=== PATIENT | female | born 2000 ===

== ENCOUNTER 2024-01-22 14:26 | Emergency (ER) | payer OTHER, SELFPAY ==
[2024-01-22 14:36] VITALS: BP 144/86
[2024-01-22 15:00] LABS: % Basophils 0.6 % (0-2); % Eosinophils 0.6 % (0-6); % Immature Granulocytes 0.3 % (0-0.5); % Lymphocytes 37.2 % (20.5-51.1); % Monocytes 6.2 % (1.7-9.3); % Neutrophils 55.1 % (42.2-75.2); Absolute Basophils 0.1 10^3/uL (0-0.2); Absolute Eosinophils 0.1 10^3/uL (0-0.7); Absolute Lymphocytes 3.8 10^3/uL (1.2-3.4); Absolute Monocytes 0.6 10^3/uL (0.1-0.6); Absolute Neutrophils 5.7 10^3/uL (1.4-6.5); Hematocrit 41.4 % (37.0-47.0); Hemoglobin 13.5 g/dL (12.0-16.0); Mean Corp Hgb Conc. 32.6 g/dL (33.0-37.0); Mean Corpuscular Hgb 28.1 pg (27.0-31.0); Mean Corpuscular Volume 86.1 fL (81.0-99.0); Mean Platelet Volume 8.8 fL (7.4-10.4); Nucleated Red Blood Cells % 0 %; Platelet Count 400 10^3/uL (130-400); Red Blood Cell Count 4.81 10^6/uL (4.20-5.40); Red Cell Dist. Width 12.5 % (11.5-14.5); White Blood Cell Count 10.3 10^3/uL (4.8-10.8)
[2024-01-22 15:16] LABS: ALT (SGPT) 14 U/L (0-35); AST (SGOT) 22 U/L (14-36); Albumin 4.9 g/dl (3.5-5.0); Alkaline Phosphatase 58 U/L (38-126); Blood Urea Nitrogen 12 mg/dl (7-17); Calcium 10.1 mg/dl (8.4-10.2); Carbon Dioxide 27 mmol/L (22-30); Chloride 102 mmol/L (98-107); Glucose 101 mg/dl (70-99); Potassium 4.2 mmol/L (3.5-5.1); Sodium 139 mmol/L (135-145); Total Bilirubin 0.5 mg/dl (0.2-1.3); Total Protein 8.2 g/dl (6.3-8.2); eGFR > 60.00
[2024-01-22 15:26] LABS: Troponin I < 0.012 ng/ml
--- NOTE | 2024-01-22 16:14 | ED.GENMED ---
History of Present Illness
<Kate Foote PA-C - Last Filed: 01/22/24 18:47>
General
Chief Complaint: Chest Pain
Source: patient
Exam Limitations: none
Time Seen by Provider: 01/22/24 16:11
Nursing documentation reviewed up to this point in time: agreed with
History of Present Illness
History of Present Illness:
This is a 23-year-old female with a no past medical history presenting emergency department today with concerns of chest pain. 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 Patient was at work today when she started to experience this pain
around 12:30 PM. Patient states that she fell to the middle of her chest. Patient nothing of it at the time but she talked to one of the nurses there and nurse was concerned and took her blood pressure and noticed it was in the 150s systolically.
Patient was given aspirin by the nurse and states that this not help with her pain or her symptoms. Patient also complains of palpitations that she has had for the past few days. Patient states that she will feel like occasionally her heart will
skip a beat. Patient denies a racing heart. Patient denies any lightheadedness or syncopal episodes. Patient denies any daily alcohol or tobacco use. Patient has a family history of cardiac disease. Patient states that at her last family visit,
her cholesterol was high but denies any medication needed for that, does take oral contraceptives
Review of Systems
<Kate Foote PA-C - Last Filed: 01/22/24 18:47>
Review of Systems
All Other Systems: ROS reviewed and negative except as documented in HPI and ROS
Phy Exam
<Kate Foote PA-C - Last Filed: 01/22/24 18:47>
Physical Exam
Physical Exam:
General: Patient is well appearing and in no acute distress; non-toxic
Skin: Warm and dry, no rashes or lesions
Head: Normocephalic, atraumatic
Eyes: Sclera non-icteric. EOMs intact. PERRLA.
Cardiac: Heart rate is irregular but I hear no murmurs
Peripheral Vascular: No lower extremity swelling or edema
Pulm: Normal respiratory effort, breath sounds equal bilaterally, no wheeze
Musculoskeletal: Chest pain not reproducible on exam. No palpable crepitus.
Neuro: CN II-XII intact, no focal neurologic deficits.
Psychiatric: Appropriate mood and affect.
Scores
<Kate Foote PA-C - Last Filed: 01/22/24 18:47>
Heart Score for Chest Pain Patients
STEMI patient?: No
History: Slightly or Non-Suspicious
ECG: Normal
Age: </= 45 years
Risk Factors: No Risk Factors
Troponin: </= Normal Limit
Heart Score for Chest Pain Patients: 0
Heart Score Risk: 2.5% MACE over next 6 weeks
Course
<Kate Foote PA-C - Last Filed: 01/22/24 18:47>
Orders/Labs/Results
Orders:
Orders
01/22/24 14:38
Electrocardiogram (*1) Urgent
Reason for Study: Chest Pain
EKG- Treatment ONCE
01/22/24 14:44
Complete Blood Count/With Diff Urgent
Comprehensive Metabolic Panel Urgent
Troponin I Urgent
01/22/24 16:51
Ketorolac [Toradol] 15 mg IV NOW STA
01/22/24 17:21
D-Dimer Urgent
Abnormal Lab Results
01/22/24
14:44
MCHC 32.6 L g/dL
(33.0-37.0)
Absolute Lymphs (auto) 3.8 H 10^3/uL
(1.2-3.4)
Glucose 101 H mg/dl
(70-99)
01/22/24 14:44
01/22/24 14:44
Vital Signs
Initial and Last Documented VS:
Initial Vital Signs
Temp Pulse Resp BP Pulse Ox
99.2 F 91 18 144/86 100
01/22/24 14:36 01/22/24 14:36 01/22/24 14:36 01/22/24 14:36 01/22/24 14:36
Last Documented Vital Signs
Temp Pulse Resp BP Pulse Ox
99.2 F 78 14 123/68 97
01/22/24 14:36 01/22/24 18:00 01/22/24 18:00 01/22/24 18:00 01/22/24 18:00
<Adair Chew, DO - Last Filed: 01/22/24 16:53>
Orders/Labs/Results
Orders:
Orders
01/22/24 14:38
Electrocardiogram (*1) Urgent
Reason for Study: Chest Pain
EKG- Treatment ONCE
01/22/24 14:44
Complete Blood Count/With Diff Urgent
Comprehensive Metabolic Panel Urgent
Troponin I Urgent
01/22/24 16:51
Ketorolac [Toradol] 15 mg IV NOW STA
01/22/24 17:21
D-Dimer Urgent
Abnormal Lab Results
01/22/24
14:44
MCHC 32.6 L g/dL
(33.0-37.0)
Absolute Lymphs (auto) 3.8 H 10^3/uL
(1.2-3.4)
Glucose 101 H mg/dl
(70-99)
01/22/24 14:44
01/22/24 14:44
Vital Signs
Initial and Last Documented VS:
Initial Vital Signs
Temp Pulse Resp BP Pulse Ox
99.2 F 91 18 144/86 100
01/22/24 14:36 01/22/24 14:36 01/22/24 14:36 01/22/24 14:36 01/22/24 14:36
Last Documented Vital Signs
Temp Pulse Resp BP Pulse Ox
99.2 F 78 14 123/68 97
01/22/24 14:36 01/22/24 18:00 01/22/24 18:00 01/22/24 18:00 01/22/24 18:00
<Kate Foote PA-C - Last Filed: 01/22/24 18:47>
MDM/Problems Addressed
Differential Diagnosis Includes:
ddx include costochondritis, ACS, GERD, pulmonary embolism
MDM/Problems Addressed:
Chest pain:
This is a 23-year-old female with a no past medical history presenting emergency department today with concerns of chest pain. Discharged around 1230 today. Chest pain is not reproducible on exam. She is well-appearing. Patient has palpitations
with this and was at times tachycardic. Her heart rate does sound irregular and she does have sinus arrhythmia on and her EKG which may explain her feelings of palpitations although she definitely need further follow-up for this. Her D-dimer was
not detectable, her CBC and CMP are unremarkable. No concern for ACS considering patient has no family history and no cardiac risk factors, no concern for PE. Suspect musculoskeletal or costochondritis considering patient's pain relieved with
Toradol. Patient stable discharge, patient has a follow-up appointment with her primary next week on Saturday to address this pain. Discussed that she may need Holter monitor. Patient stable for discharge
Chronic conditions affecting care:
n/a
Acute Exacerbation and/or Progression of Chronic Illness:
n/a
<Kate Foote PA-C - Last Filed: 01/22/24 18:47>
*Critical Care Note
Total Time (30-74mins, 75-104mins- exclusive of procedures): Not Applicable
<Kate Foote PA-C - Last Filed: 01/22/24 18:47>
Patient Management
Escalation/DeEscalation of care consider admission/obs:
patient stable for discharge, case reviewed with my attending Dr. Chew
ED Attending Note
<Kate RussTej Foote PA-C - Last Filed: 01/22/24 18:47>
-
Portions of this chart may have been created with voice recognition software.� Occasional wrong word or��sound alike� substitutions may have occurred due to the inherent limitations of voice recognition software.
<Adair Chew DO - Last Filed: 01/22/24 16:53>
ED Attending Note
Patient seen and examined by attending physician: Yes
I performed the substantive portion of visit, reviewed & personally made and approve the management plan that is documented in note by myself or KARLO.: Yes
ED Attending Note:
Seen with PA examined independently 23-year-old female on oral contraceptive is sharp anterior chest wall pain EKG troponin noted will add high-sensitivity D-dimer is no calf pain no other VTE risk factors
Discharge Plan
Departure
Patient Disposition: Home (Routine Discharge)
Date of Disposition: 01/22/24
Time of Disposition: 17:54
Patient with high blood pressure during this ER visit?: Yes
Condition: Good
Discharge Problem:
Chest pain
Instructions: Costochondritis (DC), BLOOD PRESSURE, Chest Pain
Referrals:
Tl Vinson MD [Active] - Call in 1-3 days for appt
Activity Restrictions/Additional Instructions:
Please return emergency department should you experience acute worsening or symptoms, shortness of breath, lightheadedness, dizziness, or other signs or symptoms concern you.
Please keep your follow-up appointment next week with your primary care provider. You may need to see a hygiene teacher.
You can alternate Tylenol and Motrin for your pain.
Interventions
Interventions:
*Risk Screen - Suicide Last Done: 01/22/24 14:36
*General Assessment Last Done: 01/22/24 18:22
*Neglect/Abuse Screening Last Done: 01/22/24 14:36
ED- Fall Risk Assessment Last Done: 01/22/24 18:22
*ED COVID-19 Vaccine History Last Done: 01/22/24 14:36
*Nursing Disposition Last Done: 01/22/24 18:22
ED- Cardiac Assessment Last Done: 01/22/24 17:36
Discharge Date and Time
Print Language: SLOVENIAN
[2024-01-22] MEDS: TORADOL 15 MG IV (17:19)
[2024-01-22 17:35] VITALS: BP 140/77
[2024-01-22 17:45] LABS: D-Dimer < 0.27 ug/mlFEU (0.00-0.50)
[2024-01-22 18:00] VITALS: BP 123/68
== END 2024-01-22 18:43 | disposition home or self-care (01) ==
LOC: EMR 14:26
PROVIDERS: Emergency Medicine; Physician Assistant; EMERGENCY PHYSICIAN Emergency Medicine; FAMILY PHYSICIAN Student in an Organized Health Care Education/Training Program
DX: R07.89 Other chest pain (principal); R03.0 Elevated blood-pressure reading, without diagnosis of hypertension
CPT/HCPCS: 99284; 96374; 80053; 84484; 85025; 85379; 93005